=== PATIENT | female | born 1995 | race American Indian/Alaskan Native ===

== ENCOUNTER 2025-01-12 03:38 | Emergency (ER) | payer BC, SELFPAY ==
[2025-01-12 03:40] VITALS: BP 131/87; PULSE 79; RESP 18; TEMP 36.7; O2SAT 100; BMI 34.7
[2025-01-12 04:00] LABS: Hematocrit 39.8 % (37-47); Hemoglobin 12.7 g/dL (12.0-15.0); Immature Granulocytes Count 0.010 X10^3/uL (0.0-0.0); Mean Corp Hgb Conc 31.9 g/dL (32-36); Mean Corpuscular Volume 78.2 fL (81-99); Mean Platelet Vol. 10.0 fl (6.2-12.0); NRBC Flagged by Analyzer 0 % (0-5); Platelet Count 295 K/mm3 (150-450); RBC Distribution Width CV 13.1 % (11.6-14.6); RBC Distribution Width SD 37.2 fl (35.1-43.9); Red Blood Count 5.09 M/mm3 (4.2-5.4); White Blood Count 7.4 K/mm3 (4.4-11.0)
--- NOTE | 2025-01-12 04:03 | EKG12_ITS ---
Test Reason : General Illness Blood Pressure : */* mmHG Vent. Rate : 69 BPM Atrial Rate : 69 BPM P-R Int : 156 ms QRS Dur : 80 ms QT Int : 402 ms P-R-T Axes : 34 18 23 degrees QTcB Int : 430 ms Normal sinus rhythm Low voltage QRS Borderline ECG Confirmed by TEMO OSHEA, NIMO ([id number]), multimedia editor AMMON MCCLELLAN ([id number]) on 01/15/2025 6:20:54 AM Referred By: Aye Confirmed By: NIMO PLASCENCIA MD
[2025-01-12 04:18] LABS: AST(SGOT) 24 U/L (<=31); Alanine Aminotransfer ALT/SGPT 17 U/L (<=34); Albumin, Serum 4.2 g/dL (3.5-5.0); Alkaline Phosphatase 89 U/L (35-104); Anion Gap 12 (5-15); BUN 8 mg/dL (4-19); BUN/Creat Ratio 12.1 RATIO (10-20); Calcium,Total 8.8 mg/dL (7.6-11.0); Carbon Dioxide 21.6 mmol/L (21.0-32.0); Chloride 106 mmol/L (98-108); Estimated Creatinine Clearance 128.47 ml/min (50-250); Globulin 3.0 g/dL (2.2-4.2); Glucose 102 mg/dL (70-99); Lipase 37 U/L (13-75); Potassium 3.6 mmol/L (3.3-5.1)
[2025-01-12 04:25] LABS: Internal QC Validated? YES +Cl - CLEAR BKGD; Pregnancy, Serum, hCG Quali. NEGATIVE Negative
[2025-01-12 04:26] LABS: Record Kit Lot#, Serum Preg. 0000980607
[2025-01-12 04:39] LABS: Mucous, Urine 0 SEEN /hpf (<or=2+); Red Blood Cells-Urine 0 SEEN /hpf (0-5); Squamous Epithelial Cells - UA 0 SEEN /hpf (5-10)
[2025-01-12 04:41] LABS: Color, Urine Yellow (Yellow); Glucose, Dipstick Normal (Normal); Ketone-Dipstick Negative (Negative); Leukocyte Esterase-Dipstick Negative /ul (Negative); Nitrite-Dipstick Negative (Negative); Occult Blood-Urine Negative /ul (Negative); Protein-Dipstick Negative (Negative); Specific Gravity, Urine 1.010 (1.002-1.030); Urine Bilirubin Dipstick Negative (Negative)
[2025-01-12 04:45] LABS: Magnesium 2.0 mg/dL (1.5-2.2)
--- NOTE | 2025-01-12 05:14 | EDS_ITS ---
HPI History of Present Illness Chief Complaint: General Illness Informant: patient and spouse/S.O. Narrative Narrative: Patient is a 29-year-old female with past medical history of PCOS currently on metformin. She states she has had various complaints such as nausea without vomiting as well as difficulty sleeping and this evening sensation of heart racing. She denies any history of abnormal heart rhythms such as atrial fibrillation atrial flutter or SVT. She denies any illicit drug use or excessive stimulant use. She states that she is unsure if she is having an abnormal heart rhythm or potentially infection causing her symptoms and therefore she presents for evaluation. [facility] Medical History (Updated 01/16/25 @ 00:[address] Osmar Griffiths, DO) PCOS (polycystic ovarian syndrome) Home Medications ?Medication ?Instructions ?Recorded ?Last Taken ?Type metformin 500 mg tablet 500 mg PO DAILY 01/12/25 Unk nown History Allergy/AdvReac Type Severity Reaction Status Date / Time No Known Allergies Allergy Verified 01/12/25 03:44 Social History Smoking Status: Never smoker [facility] ED Constitutional Constitutional ED: Denies chills or fever(s) Eyes Eyes: Denies blurry vision or change in vision ENT ENT ED: Denies rhinorrhea or sore throat Cardiovascular Cardiovascular: Reports palpitations and racing heartbeat; Denies chest pain Respiratory/Chest Respiratory/Chest: Denies cough or dyspnea Gastrointestinal Gastrointestinal: Reports nausea; Denies abdominal pain, diarrhea or vomiting Genitourinary Genitourinary ED: Denies dysuria Musculoskeletal Musculoskeletal: Denies myalgias Integumentary Denies rash Neurologic Neurologic: Denies headache(s) Hematologic/Lymphatic Hematologic/Lymphatic: Denies easy bleeding or easy bruising EXAM Physical Exam Const Vital Signs: 01/12/25 03:40 Temperature 98.1 F Temperature Source Oral Pulse Rate 79 Respiratory Rate 18 Blood Pressure 131/87 H Blood Pressure Mean 101 Pulse Ox 100 Oxygen Delivery Method Room Air Positive well nourished and well developed General Appearance ED: well developed; Negative for pallor HEENT Reports moist mucous membranes HEENT Narrative: Normocephalic atraumatic No tongue or lip swelling no oral lesions no airway edema or compromise No secondary findings in the posterior pharynx to suggest infection Eyes PERRL and EOMs intact bilaterally General Eye ED: Negative for scleral icterus Neck supple Chest Wall palpation of chest normal Resp normal respiratory effort and clear to auscultation bilaterally Cardio regular rate and regular rhythm Rate: other Other Details: Heart is regular rate and rhythm without murmurs rubs or gallop Radial and carotid pulses are equal and symmetric No carotid bruit noted GI normal to inspection, nondistended, normoactive bowel sounds, non-tender, non- distended and no masses GI Narrative: No voluntary guarding or rigidity or pulsatile mass Auscultation: normoactive bowel sounds Palpation: soft Extremity normal to inspection Extremity Narrative: No asymmetric edema no pitting edema negative Homans' sign bilaterally Neuro oriented x3, CN's II-XII intact bilaterally and no sensory deficits noted Sensorium / Orientation: alert Motor Exam: strength 5/5 throughout Psych Mood & Affect: anxious Skin no rashes or lesions noted and no wounds General Skin Exam: Negative for jaundice or pallor MDM MDM MDM Narrative Medical decision making narrative: Patient arrived to the ER with stable vitals. She had multiple complaints but the main 1 being palpitations. In order to assess for acute blood loss anemia complication acute kidney injury or electrolyte abnormality or thyroid disorder basic blood work was obtained. test is negative going against complication. TSH is normal going against hyper or hypothyroidism. Blood work reveals no sign of HEMANT or electrolyte abnormality. Urine sample shows no sign of acute infection. EKG revealed no sign of cardiac dysrhythmia or acute ischemia. She was kept on the phototypesetting equipment monitor and there was no abnormal rhythm noted either. On reevaluation patient is resting comfortably and is overall workup is negative and there is been no findings for acute infection complication or cardiac arrhythmia I do not feel need for further intervention or workup and she is otherwise safe for discharge with outpatient follow-up History & Record Review Discussion w/independent historian: Patient and Significant other Lab Data Attestation: I reviewed the patient's lab results. Labs: Laboratory Results - last 24 hr 01/12/25 01/12/25 03:48 04:34 WBC 7.4 RBC 5.09 Hgb 12.7 Hct 39.8 MCV 78.2 L MCH 25.0 L MCHC 31.9 L RDW Std Deviation 37.2 RDW Coeff of Christen 13.1 Plt Count 295 MPV 10.0 Immature Gran % (Auto) 0.100 Neut % (Auto) 56.6 Lymph % (Auto) 35.2 Bowman % (Auto) 6.2 Eos % (Auto) 1.6 Baso % (Auto) 0.3 Absolute Neuts (auto) 4.2 Absolute Lymphs (auto) 2.62 Nucleated RBC % 0 Sodium 139 Potassium 3.6 Chloride 106 Carbon Dioxide 21.6 Anion Gap 12 BUN 8 Creatinine 0.69 L Estim Creat Clear Calc 128.47 Est GFR (MDRD) Non-Af 121 BUN/Creatinine Ratio 12.1 Glucose 102 H Calcium 8.8 Magnesium 2.0 Total Bilirubin 0.46 AST 24 ALT 17 Alkaline Phosphatase 89 Total Protein 7.2 Albumin 4.2 Globulin 3.0 Albumin/Globulin Ratio 1.4 Lipase 37 TSH 2.610 Serum , Qual NEGATIVE Urine Color Yellow Urine Clarity Clear Urine pH 6.0 Ur Specific [place] 1.010 Urine Protein Negative Urine Glucose (UA) Normal Urine Ketones Negative Urine Occult Blood Negative Urine Nitrite Negative Urine Bilirubin Negative Urine Urobilinogen Normal Ur Leukocyte Esterase Negative Urine RBC 0 SEEN Urine WBC 0 SEEN Ur Squamous Epith Cells 0 SEEN Urine Bacteria 0 SEEN Urine Mucus 0 SEEN Discharge Plan Triage Chief Complaint: General Illness ED Provider: Osmar Griffiths Dx/Rx/DC Orders Clinical Impression: Palpitations, PCOS (polycystic ovarian syndrome) Instructions: ED Heart Palpitations Prescriptions: No Action metformin 500 mg tablet 500 mg PO DAILY Primary Care Provider: Care Physician,No Primary Referrals: Homar Harper MD [Med Staff - Active Staff, Family Practice] Care Physician,No Primary [Primary Care Provider, Medical] Activity Restrictions/Additional Instructions: Your workup today revealed no sign of heart damage or abnormal heart rhythm. Blood work revealed no sign of thyroid disorder low blood volume kidney damage or electrolyte changes. Please follow-up with your family doctor to discuss potential Holter monitor for further evaluation of your palpitations and return to the ER should you have any further concerns Print Language: Amharic Disposition Disposition: Home, Self Care Discharge Date/Time: 01/12/25 05:24
[2025-01-12 05:15] VITALS: BP 102/66; PULSE 65; RESP 18; TEMP 36.6; O2SAT 100
== END 2025-01-12 05:24 | disposition home or self-care (01) ==
PROVIDERS: Emergency Provider Emergency Medicine; Visit Provider Emergency Medicine
DX: R00.2 Palpitations (principal); E28.2 Polycystic ovarian syndrome; Z79.84 Long term (current) use of oral hypoglycemic drugs
CPT/HCPCS: 80053; 81001; 83690; 83735; 84443; 84703; 85025; 93005; 99283; A4216